=== PATIENT | female | born 1990 | race Caucasian/White ===

== ENCOUNTER → 2017-01-17 | Outpatient (CLI) | payer BC | LOC: LAB 01:11 | DX: E07.9 Disorder of thyroid, unspecified (principal) | CPT/HCPCS: 84439; 84443 ==

== ENCOUNTER → 2020-10-28 | Outpatient (CLI) | payer BC, OTHER ==
[~2020-10-28] MED LIST: COLACE 100MG C100 MG PO; NORCO 5-325 TA1 EACH PO; ROCALTROL CA0.25 MCG PO; SYNTHROID125 MCG PO; TUMS PO; YAZ 28 TABLET1 EACH PO
== END ==
LOC: US 13:24
DX: N64.4 Mastodynia (principal); N63.41 Unspecified lump in right breast, subareolar; N63.10 Unspecified lump in the right breast, unspecified quadrant
CPT/HCPCS: 76641-RT

== ENCOUNTER → 2020-12-09 | Outpatient (CLI) | payer BC, OTHER | LOC: US 11-28 10:00 | DX: N63.13 Unspecified lump in the right breast, lower outer quadrant (principal); N63.15 Unspecified lump in the right breast, overlapping quadrants ==